=== PATIENT | female | born 1995 | race Caucasian/White ===

== ENCOUNTER 2016-05-06 13:14 | Emergency (ER) | payer OTHER ==
[2016-05-06] MEDS ORDERED: ONDANSETRON 4MG/2ML VIAL (J2405) As Ordered ONE (13:45)
[2016-05-06 13:56] LABS: BASO % 0.1 % (0.0-1.0); EOS # 0.2 K/mm3 (0.0-0.50); EOS % 1.5 % (0.0-3.0); LARGE UNSTAINED CELL % 0.2 % (0.0-4.0); LYMPH # 0.3 K/mm3 (1.5-6.5); MEAN CORPUSCULAR HEMOGLOBIN 32.1 pg (27.0-33.0); MEAN CORPUSCULAR HGB CONC 34.9 g/dl (32.0-36.5); MEAN CORPUSCULAR VOLUME 91.9 fl (80.0-96.0); MONO # 0.3 K/mm3 (0.0-0.8); MONO % 1.9 % (0.0-5.0); NEUTROPHILS # 12.3 K/mm3 (1.8-7.7); NEUTROPHILS % 94.2 % (36.0-66.0); PLATELET COUNT, AUTOMATED 206 k/mm3 (150-450); RED CELL DISTRIBUTION WIDTH 12.2 % (11.5-14.5); WHITE BLOOD COUNT 13.1 K/mm3 (4.0-10.0)
[2016-05-06 14:09] LABS: ANION GAP 10 MEQ/L (8-16); BLOOD UREA NITROGEN 11 MG/DL (7-18); CALCIUM LEVEL 8.4 MG/DL (8.5-10.1); CARBON DIOXIDE LEVEL 26 MEQ/L (21-32); CHLORIDE LEVEL 103 MEQ/L (98-107); CREATININE FOR GFR 0.54 MG/DL (0.55-1.02); GLOMERULAR FILTRATION RATE > 60.0 (>60); GLUCOSE, FASTING 95 MG/DL (70-105); POTASSIUM SERUM 3.8 MEQ/L (3.5-5.1); SODIUM LEVEL 139 MEQ/L (136-145)
--- NOTE | 2016-05-06 15:33 | EDDOCDS ---
Physician Documentation [facility] Name: Rula Amaral Age: 20 yrs Sex: Female : 1995 Arrival Date: 05/06/2016 Time: 13:14 Bed I5 / M5 Private MD: BRAYDON MEDEROS Disposition: 05/06/16 15:25 Discharged to Home/Self Care. Impression: Nausea and vomiting, Diarrhea, unspecified. - Condition is Stable. - Discharge Instructions: Viral Gastroenteritis. - Prescriptions for ZOFRAN ODT 4 mg - dissolve 1 tablet by ORAL route 4 times per day As needed do not chew, do not swallow whole; 10 tablet. - Medication Reconciliation form. - [facility]; When: Tomorrow; Reason: Wound/Symptom Recheck, Recheck today's complaints, Worsening of conditions, Continuance of care. - Problem is new. - Symptoms have improved. - Notes: Please take tylenol as needed for fevers and pain. Historical: - Allergies: no known allergies; - Home Meds: 1. 28 mg iron- 800 mcg Oral tab daily - PMHx: none; - PSHx: Tonsillectomy; [place] Teeth Extraction; - Social history: Smoking status: Patient states former smoker of tobacco. No barriers to communication noted, The patient speaks fluent Estonian. - Family history: Not pertinent. - : The pt / caregiver states he / she is not on anticoagulants. Home medication list is obtained from the patient. - Exposure Risk Screening:: None identified. 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 (167.64 cm); Pain 2/10; 14:21 BP 95 / 53; Pulse 87; Resp 18; Temp 99.5(O); Pulse Ox 100% on R/A; Pain 0/10; elp 15:24 BP 101 / 55; Pulse 89; Resp 18; Temp 102(O); Pulse Ox 100% on R/A; ck1 13:17 Body Mass Index 21.79 (61.23 kg, 167.64 cm) bnb MDM: 13:38 Heart Tones ordered. cc10 13:40 Ondansetron 4 mg IVP once ordered. cc10 13:40 NS 0.9% 1000 ml IV at bolus once ordered. cc10 13:40 IV Saline Lock ordered. cc10 13:41 CBC with Diff Ordered. EDMS 13:41 BMP Ordered. EDMS 14:12 CBC with Diff Reviewed. cc10 14:12 BMP Reviewed. cc10 14:48 Financial registration complete. jls1 14:54 Fluid Challenge ordered. cc10 14:58 [facility] Payment Agreement was scanned into [employer] and attached to record. jls1 15:20 Ambulate Patient to Assess Patient Safety ordered. cc10 15:20 Vital Signs ordered. cc10 Administered Medications: 13:49 Drug: Ondansetron 4 mg [ondansetron HCl 2 mg/mL intravenous solution (2 mL)] Route: ck1 IVP; Site: left antecubital; 13:49 Drug: NS 0.9% 1000 ml [sodium chloride 0.9 % intravenous solution] Route: IV; Rate: ck1 bolus; Site: left antecubital; 15:24 Follow up: IV Status: Completed infusion ck1 Signatures: Dispatcher [employer] Mindi Cleary,RN RN ck1 Shannon Lombardi RN RN rs3 Waqas Pederson, PADiane PADiane cc10 Yas Begum jls1 The chart was reviewed and I authenticate all verbal orders and agree with the evaluation and treatment provided.Attachments: 14:58 [facility] Payment Agreement jls1 MTDD
--- NOTE | 2016-05-06 15:33 | EDDOCDS ---
Nurse's Notes [facility] Name: Rula Amaral Age: 20 yrs Sex: Female : 1995 Arrival Date: 05/06/2016 Time: 13:14 Bed I5 / M5 Private MD: BRAYDON MEDEROS Diagnosis: Nausea and vomiting;Diarrhea, unspecified Presentation: 05/06 13:18 Presenting complaint: Patient states: vomiting/dizziness since this morning. exposure rs3 to sick contacts at work. 15 weeks . Adult Sepsis Screening: The patient does not have new or worsening altered mentation. Patient's respiratory rate is less than 22. Systolic blood pressure is greater than 100. Patient has a qSOFA score of 0- Negative Sepsis Screen. Suicide/Homicide risk assessment- the patient denies having any suicidal and/or homicidal ideations and does not present with any other emotional, behavioral or mental health complaints. 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 Transition of care: patient was not received from another setting of care. 13:18 Acuity: MICHAEL Level 3 rs3 13:18 Method Of Arrival: Walkin/Carried/Asstd rs3 Triage Assessment: 13:21 General: Appears in no apparent distress. Pain: Location: abdomen. Pt Declines HIV rs3 testing. 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 28 mg iron- 800 mcg Oral tab daily - PMHx: none; - PSHx: Tonsillectomy; [place] Teeth Extraction; - Social history: Smoking status: Patient states former smoker of tobacco. No barriers to communication noted, The patient speaks fluent Korean. - Family history: Not pertinent. - : The pt / caregiver states he / she is not on anticoagulants. Home medication list is obtained from the patient. - Exposure Risk Screening:: None identified. Screenin:50 Screening information is obtained from the patient. Fall risk: No risks identified. ck1 Assistance ADL's: requires no assistance with activities of daily living. Abuse/DV Screen: The patient / caregiver reports he/she is: not in a situation that causes fear, pain or injury. Nutritional screening: No deficits noted. Advance Directives: Currently, there is no health care proxy. home support is adequate. Assessment: 13:50 General: Appears in no apparent distress, comfortable, Behavior is appropriate for age, ck1 cooperative. Pain: Location: abdomen. Neurological: Level of Consciousness is awake, alert, obeys commands, Oriented to person, place, time. Respiratory: Respiratory effort is unlabored, Respiratory pattern is regular, symmetrical. GI: Abdomen is non- distended Bowel sounds present X 4 quads. Abd is soft and non tender X 4 quads. Reports nausea, vomiting. : Denies vaginal bleeding. Derm: Skin is intact, is healthy with good turgor, Skin is pink, warm & dry. 14:59 General: Patient lying on stretcher, states she is tolerating PO fluids without ck1 difficulty. Denies vomiting. No acute distress noted, call light in reach. Will continue to monitor patient. 15:31 General: Appears in no apparent distress, comfortable, Behavior is appropriate for age, ck1 cooperative. Pain: Denies pain. Neurological: Level of Consciousness is awake, alert, obeys commands, Oriented to person, place, time. Respiratory: Respiratory effort is unlabored, Respiratory pattern is regular, symmetrical. : Denies vaginal bleeding. Derm: Skin is pink, warm & dry. Vital Signs: 13:17 BP 114 / 67 RA Sitting (auto/lg); Pulse 114; Resp 16; Temp 98.5(O); Pulse Ox 100% on bnb R/A; Weight 61.23 kg; Height 66 in. (167.64 cm); Pain 2/10; 14:21 BP 95 / 53; Pulse 87; Resp 18; Temp 99.5(O); Pulse Ox 100% on R/A; Pain 0/10; elp 15:24 BP 101 / 55; Pulse 89; Resp 18; Temp 102(O); Pulse Ox 100% on R/A; ck1 13:17 Body Mass Index 21.79 (61.23 kg, 167.64 cm) bnb Vitals: 13:17 Log In Time: May 06, 2016 at 13:14. bnb 13:58 Heart Tones 150BPM. mlb1 ED Course: 13:15 Patient visited by Zoe Giles, MARY. bnb 13:15 Patient moved to Waiting bnb 13:16 [facility], [facility] is Private Physician. bnb 13:18 Patient moved to Pre RCE bnb 13:20 Triage Initiated rs3 13:24 Patient moved to Triage 2 ar3 13:38 Waqas Pederson [facility]-C [facility]. cc10 13:38 David Duque MD is Attending Physician. cc10 13:44 Patient moved to I5 / M5 ar3 13:46 Inserted saline lock: 20 gauge in left antecubital area and blood collected. Labs jjr drawn. (by ED staff). Sent per order to lab. 13:51 Patient visited by Mindi Bauman,JANE. ck1 13:51 The patient / caregiver is instructed regarding the plan of care and ED course. ck1 13:55 Patient visited by Waqas Pederson PA-C. cc10 13:55 Patient visited by Waqas Pederson PA-C. cc10 14:22 Patient visited by Armida Mayo PCA. elp 14:54 Patient name changed from Rula\S\Aure\S\Cobey\S\ to Rula\S\Aure\S\Munir. EDMS 14:58 [facility] Payment Agreement was scanned into [email or web address] and attached to record. jls1 14:59 Patient visited by Mindi Bauman,JANE. ck1 15:24 [facility] is Referral Physician. cc10 15:31 No procedures done that require assistance. ck1 15:32 Discontinued lock intact, bleeding controlled, pressure dressing applied, No ck1 redness/swelling at site. Administered Medications: 13:49 Drug: Ondansetron 4 mg [ondansetron HCl 2 mg/mL intravenous solution (2 mL)] Route: ck1 IVP; Site: left antecubital; 13:49 Drug: NS 0.9% 1000 ml [sodium chloride 0.9 % intravenous solution] Route: IV; Rate: ck1 bolus; Site: left antecubital; 15:24 Follow up: IV Status: Completed infusion ck1 Order Results: Lab Order: CBC with Diff; SPEC'M 05/06/16 13:43 Test: WHITE BLOOD COUNT; Value: 13.1; Range: 4.0-10.0; Abnormal: Above high normal; Units: K/mm3; Status: F Test: RED BLOOD COUNT; Value: 4.38; Range: 4.00-5.40; Units: M/mm3; Status: F Test: HEMOGLOBIN; Value: 14.0; Range: 12.0-16.0; Units: g/dl; Status: F Test: HEMATOCRIT; Value: 40.2; Range: 36.0-47.0; Units: %; Status: F Test: MEAN CORPUSCULAR VOLUME; Value: 91.9; Range: 80.0-96.0; Units: fl; Status: F Test: MEAN CORPUSCULAR HEMOGLOBIN; Value: 32.1; Range: 27.0-33.0; Units: pg; Status: F Test: MEAN CORPUSCULAR HGB CONC; Value: 34.9; Range: 32.0-36.5; Units: g/dl; Status: F Test: RED CELL DISTRIBUTION WIDTH; Value: 12.2; Range: 11.5-14.5; Units: %; Status: F Test: PLATELET COUNT, AUTOMATED; Value: 206; Range: 150-450; Units: k/mm3; Status: F Test: NEUTROPHILS %; Value: 94.2; Range: 36.0-66.0; Abnormal: Above high normal; Units: %; Status: F Test: LYMPH %; Value: 2.0; Range: 24.0-44.0; Abnormal: Below low normal; Units: %; Status: F Test: MONO %; Value: 1.9; Range: 0.0-5.0; Units: %; Status: F Test: EOS %; Value: 1.5; Range: 0.0-3.0; Units: %; Status: F Test: BASO %; Value: 0.1; Range: 0.0-1.0; Units: %; Status: F Test: LARGE UNSTAINED CELL %; Value: 0.2; Range: 0.0-4.0; Units: %; Status: F Test: NEUTROPHILS #; Value: 12.3; Range: 1.8-7.7; Abnormal: Above high normal; Units: K/mm3; Status: F Test: LYMPH #; Value: 0.3; Range: 1.5-6.5; Abnormal: Below low normal; Units: K/mm3; Status: F Test: MONO #; Value: 0.3; Range: 0.0-0.8; Units: K/mm3; Status: F Test: EOS #; Value: 0.2; Range: 0.0-0.50; Units: K/mm3; Status: F Test: BASO #; Value: 0.0; Range: 0.0-0.2; Units: K/mm3; Status: F Test: LARGE UNSTAINED CELL #; Value: 0.0; Range: 0.0-0.4; Units: K/mm3; Status: F Lab Order: [facility]; SPEC'M 05/06/16 13:43 Test: GLUCOSE, FASTING; Value: 95; Range: 70-105; Units: MG/DL; Status: F Test: BLOOD UREA NITROGEN; Value: 11; Range: 7-18; Units: MG/DL; Status: F Test: CREATININE FOR GFR; Value: 0.54; Range: 0.55-1.02; Abnormal: Below low normal; Units: MG/DL; Status: F Test: GLOMERULAR FILTRATION RATE; Value: > 60.0; Range: >60; Status: F Test: SODIUM LEVEL; Value: 139; Range: 136-145; Units: MEQ/L; Status: F Test: POTASSIUM SERUM; Value: 3.8; Range: 3.5-5.1; Units: MEQ/L; Status: F Test: CHLORIDE LEVEL; Value: 103; Range: 98-107; Units: MEQ/L; Status: F Test: CARBON DIOXIDE LEVEL; Value: 26; Range: 21-32; Units: MEQ/L; Status: F Test: ANION GAP; Value: 10; Range: 8-16; Units: MEQ/L; Status: F Test: CALCIUM LEVEL; Value: 8.4; Range: 8.5-10.1; Abnormal: Below low normal; Units: MG/DL; Status: F Test Note: ; Units are mL/min/1.73 m2 Chronic Kidney Disease Staging per NKF: Stage I & II GFR >=60 Normal to Mildly Decreased Stage III GFR 30-59 Moderately Decreased Stage IV GFR 15-29 Severely Decreased Stage V GFR <15 Very Little GFR Left ESRD GFR <15 on BOREMATIC OPERATOR Outcome: 15:25 Discharge ordered by Provider. cc10 15:31 Discharge Assessment: Patient awake, alert and oriented x 3. No cognitive and/or ck1 functional deficits noted. Patient verbalized understanding of disposition instructions. patient administered narcotics - no. The following High Risk Discharge criteria are identified: None. Discharged to home ambulatory, with friend. Condition: stable. Discharge instructions given to patient, Instructed on discharge instructions, follow up and referral plans. medication usage, Demonstrated understanding of instructions, medications, Pt was receptive of discharge instructions/ teaching. Prescriptions given X 1. Property :Personal belongings accompany Pt. 15:31 No special radiology studies were completed. ck1 15:32 Patient left the ED. ck1 Signatures: Dispatcher [employer] EDMS Сергей Brito RN RN mlb1 Mindi BaumanRN RN ck1 Viviane Martinez RN RN Shannon LemonRN RN rs3 Vilma Pina, DIRECTOR OF GROUP COUNSELING PROGRAM DIRECTOR OF GROUP COUNSELING PROGRAM ar3 Armida Mayo, DIRECTOR OF GROUP COUNSELING PROGRAM DIRECTOR OF GROUP COUNSELING PROGRAM elp Waqas Pederson PA-C PA-C cc10 Yas Begum jls1 Zoe Giles, DIRECTOR OF GROUP COUNSELING PROGRAM DIRECTOR OF GROUP COUNSELING PROGRAM bnb MTDD
--- NOTE | 2016-05-08 16:33 | EDDOCDS ---
Physician Documentation [facility] Name: Rula Amaral Age: 20 yrs Sex: Female : 1995 Arrival Date: 05/06/2016 Time: 13:14 Bed I5 / M5 Private MD: BRAYDON MEDEROS Disposition: 05/06/16 15:25 Discharged to Home/Self Care. Impression: Nausea and vomiting, Diarrhea, unspecified. - Condition is Stable. - Discharge Instructions: Viral Gastroenteritis. - Prescriptions for ZOFRAN ODT 4 mg - dissolve 1 tablet by ORAL route 4 times per day As needed do not chew, do not swallow whole; 10 tablet. - Medication Reconciliation form. - [facility]: Tomorrow; Reason: Wound/Symptom Recheck, Recheck today's complaints, Worsening of conditions, Continuance of care. - Problem is new. - Symptoms have improved. - Notes: Please take tylenol as needed for fevers and pain. Historical: - Allergies: no known allergies; - Home Meds: 1. 28 mg iron- 800 mcg Oral tab daily - PMHx: none; - PSHx: Tonsillectomy; [place] Teeth Extraction; - Social history: Smoking status: Patient states former smoker of tobacco. No barriers to communication noted, The patient speaks fluent Faroese. - Family history: Not pertinent. - : The pt / caregiver states he / she is not on anticoagulants. Home medication list is obtained from the patient. - Exposure Risk Screening:: None identified. 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 (167.64 cm); Pain 2/10; 14:21 BP 95 / 53; Pulse 87; Resp 18; Temp 99.5(O); Pulse Ox 100% on R/A; Pain 0/10; elp 15:24 BP 101 / 55; Pulse 89; Resp 18; Temp 102(O); Pulse Ox 100% on R/A; ck1 13:17 Body Mass Index 21.79 (61.23 kg, 167.64 cm) bnb MDM: 13:38 Heart Tones ordered. cc10 13:40 Ondansetron 4 mg IVP once ordered. cc10 13:40 NS 0.9% 1000 ml IV at bolus once ordered. cc10 13:40 IV Saline Lock ordered. cc10 13:41 CBC with Diff Ordered. EDMS 13:41 BMP Ordered. EDMS 14:12 CBC with Diff Reviewed. cc10 14:12 BMP Reviewed. cc10 14:48 Financial registration complete. jls1 14:54 Fluid Challenge ordered. cc10 14:58 [facility] Payment Agreement was scanned into [employer] and attached to record. jls1 15:20 Ambulate Patient to Assess Patient Safety ordered. cc10 15:20 Vital Signs ordered. cc10 19:16 T-Sheet-- Draft Copy was scanned into [employer] and attached to record. klr Administered Medications: 13:49 Drug: Ondansetron 4 mg [ondansetron HCl 2 mg/mL intravenous solution (2 mL)] Route: ck1 IVP; Site: left antecubital; 13:49 Drug: NS 0.9% 1000 ml [sodium chloride 0.9 % intravenous solution] Route: IV; Rate: ck1 bolus; Site: left antecubital; 15:24 Follow up: IV Status: Completed infusion ck1 Signatures: Dispatcher [employer] EDMindi Shrestha RN RN ck1 Shannon Lombardi RN RN rs3 Waqas Pederson PA-C PADiane cc10 Yas Begum jls1 Susannah Blackburn klr The chart was reviewed and I authenticate all verbal orders and agree with the evaluation and treatment provided.Attachments: 14:58 [facility] Payment Agreement jls1 19:16 T-Sheet-- Draft Copy klr Chart Complete MTDD
--- NOTE | 2016-05-08 16:33 | EDDOCDS ---
Nurse's Notes [facility] Name: Rula Amaral Age: 20 yrs Sex: Female : 1995 Arrival Date: 05/06/2016 Time: 13:14 Bed I5 / M5 Private MD: BRAYDON MEDEROS Diagnosis: Nausea and vomiting;Diarrhea, unspecified Presentation: 05/06 13:18 Presenting complaint: Patient states: vomiting/dizziness since this morning. exposure rs3 to sick contacts at work. 15 weeks . Adult Sepsis Screening: The patient does not have new or worsening altered mentation. Patient's respiratory rate is less than 22. Systolic blood pressure is greater than 100. Patient has a qSOFA score of 0- Negative Sepsis Screen. Suicide/Homicide risk assessment- the patient denies having any suicidal and/or homicidal ideations and does not present with any other emotional, behavioral or mental health complaints. 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 Transition of care: patient was not received from another setting of care. 13:18 Acuity: MICHAEL Level 3 rs3 13:18 Method Of Arrival: Walkin/Carried/Asstd rs3 Triage Assessment: 13:21 General: Appears in no apparent distress. Pain: Location: abdomen. Pt Declines HIV rs3 testing. 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 28 mg iron- 800 mcg Oral tab daily - PMHx: none; - PSHx: Tonsillectomy; [place] Teeth Extraction; - Social history: Smoking status: Patient states former smoker of tobacco. No barriers to communication noted, The patient speaks fluent Portuguese. - Family history: Not pertinent. - : The pt / caregiver states he / she is not on anticoagulants. Home medication list is obtained from the patient. - Exposure Risk Screening:: None identified. Screenin:50 Screening information is obtained from the patient. Fall risk: No risks identified. ck1 Assistance ADL's: requires no assistance with activities of daily living. Abuse/DV Screen: The patient / caregiver reports he/she is: not in a situation that causes fear, pain or injury. Nutritional screening: No deficits noted. Advance Directives: Currently, there is no health care proxy. home support is adequate. Assessment: 13:50 General: Appears in no apparent distress, comfortable, Behavior is appropriate for age, ck1 cooperative. Pain: Location: abdomen. Neurological: Level of Consciousness is awake, alert, obeys commands, Oriented to person, place, time. Respiratory: Respiratory effort is unlabored, Respiratory pattern is regular, symmetrical. GI: Abdomen is non- distended Bowel sounds present X 4 quads. Abd is soft and non tender X 4 quads. Reports nausea, vomiting. : Denies vaginal bleeding. Derm: Skin is intact, is healthy with good turgor, Skin is pink, warm & dry. 14:59 General: Patient lying on stretcher, states she is tolerating PO fluids without ck1 difficulty. Denies vomiting. No acute distress noted, call light in reach. Will continue to monitor patient. 15:31 General: Appears in no apparent distress, comfortable, Behavior is appropriate for age, ck1 cooperative. Pain: Denies pain. Neurological: Level of Consciousness is awake, alert, obeys commands, Oriented to person, place, time. Respiratory: Respiratory effort is unlabored, Respiratory pattern is regular, symmetrical. : Denies vaginal bleeding. Derm: Skin is pink, warm & dry. Vital Signs: 13:17 BP 114 / 67 RA Sitting (auto/lg); Pulse 114; Resp 16; Temp 98.5(O); Pulse Ox 100% on bnb R/A; Weight 61.23 kg; Height 66 in. (167.64 cm); Pain 2/10; 14:21 BP 95 / 53; Pulse 87; Resp 18; Temp 99.5(O); Pulse Ox 100% on R/A; Pain 0/10; elp 15:24 BP 101 / 55; Pulse 89; Resp 18; Temp 102(O); Pulse Ox 100% on R/A; ck1 13:17 Body Mass Index 21.79 (61.23 kg, 167.64 cm) bnb Vitals: 13:17 Log In Time: May 06, 2016 at 13:14. bnb 13:58 Heart Tones 150BPM. mlb1 ED Course: 13:15 Patient visited by Zoe Giles, MARY. bnb 13:15 Patient moved to Waiting bnb 13:16 [facility], [facility] is Private Physician. bnb 13:18 Patient moved to Pre RCE bnb 13:20 Triage Initiated rs3 13:24 Patient moved to Triage 2 ar3 13:38 Waqas Pederson PA-C is PHCP. cc10 13:38 David Duque MD is Attending Physician. cc10 13:44 Patient moved to I5 / M5 ar3 13:46 Inserted saline lock: 20 gauge in left antecubital area and blood collected. Labs jjr drawn. (by ED staff). Sent per order to lab. 13:51 Patient visited by Mindi Bauman,JANE. ck1 13:51 The patient / caregiver is instructed regarding the plan of care and ED course. ck1 13:55 Patient visited by Waqas Pederson PA-C. cc10 13:55 Patient visited by Waqas Pederson PA-C. cc10 14:22 Patient visited by Armida Mayo PCA. elp 14:54 Patient name changed from Rual\S\Aure\S\Cobey\S\ to Rula\S\Aure\S\Munir. EDMS 14:58 [facility] Payment Agreement was scanned into [employer] and attached to record. jls1 14:59 Patient visited by Mindi Bauman,JANE. ck1 15:24 [facility] is Referral Physician. cc10 15:31 No procedures done that require assistance. ck1 15:32 Discontinued lock intact, bleeding controlled, pressure dressing applied, No ck1 redness/swelling at site. 19:16 T-Sheet-- Draft Copy was scanned into [employer] and attached to record. klr Administered Medications: 13:49 Drug: Ondansetron 4 mg [ondansetron HCl 2 mg/mL intravenous solution (2 mL)] Route: ck1 IVP; Site: left antecubital; 13:49 Drug: NS 0.9% 1000 ml [sodium chloride 0.9 % intravenous solution] Route: IV; Rate: ck1 bolus; Site: left antecubital; 15:24 Follow up: IV Status: Completed infusion ck1 Order Results: Lab Order: CBC with Diff; SPEC'M 05/06/16 13:43 Test: WHITE BLOOD COUNT; Value: 13.1; Range: 4.0-10.0; Abnormal: Above high normal; Units: K/mm3; Status: F Test: RED BLOOD COUNT; Value: 4.38; Range: 4.00-5.40; Units: M/mm3; Status: F Test: HEMOGLOBIN; Value: 14.0; Range: 12.0-16.0; Units: g/dl; Status: F Test: HEMATOCRIT; Value: 40.2; Range: 36.0-47.0; Units: %; Status: F Test: MEAN CORPUSCULAR VOLUME; Value: 91.9; Range: 80.0-96.0; Units: fl; Status: F Test: MEAN CORPUSCULAR HEMOGLOBIN; Value: 32.1; Range: 27.0-33.0; Units: pg; Status: F Test: MEAN CORPUSCULAR HGB CONC; Value: 34.9; Range: 32.0-36.5; Units: g/dl; Status: F Test: RED CELL DISTRIBUTION WIDTH; Value: 12.2; Range: 11.5-14.5; Units: %; Status: F Test: PLATELET COUNT, AUTOMATED; Value: 206; Range: 150-450; Units: k/mm3; Status: F Test: NEUTROPHILS %; Value: 94.2; Range: 36.0-66.0; Abnormal: Above high normal; Units: %; Status: F Test: LYMPH %; Value: 2.0; Range: 24.0-44.0; Abnormal: Below low normal; Units: %; Status: F Test: MONO %; Value: 1.9; Range: 0.0-5.0; Units: %; Status: F Test: EOS %; Value: 1.5; Range: 0.0-3.0; Units: %; Status: F Test: BASO %; Value: 0.1; Range: 0.0-1.0; Units: %; Status: F Test: LARGE UNSTAINED CELL %; Value: 0.2; Range: 0.0-4.0; Units: %; Status: F Test: NEUTROPHILS #; Value: 12.3; Range: 1.8-7.7; Abnormal: Above high normal; Units: K/mm3; Status: F Test: LYMPH #; Value: 0.3; Range: 1.5-6.5; Abnormal: Below low normal; Units: K/mm3; Status: F Test: MONO #; Value: 0.3; Range: 0.0-0.8; Units: K/mm3; Status: F Test: EOS #; Value: 0.2; Range: 0.0-0.50; Units: K/mm3; Status: F Test: BASO #; Value: 0.0; Range: 0.0-0.2; Units: K/mm3; Status: F Test: LARGE UNSTAINED CELL #; Value: 0.0; Range: 0.0-0.4; Units: K/mm3; Status: F Lab Order: [facility]; SPEC'M 05/06/16 13:43 Test: GLUCOSE, FASTING; Value: 95; Range: 70-105; Units: MG/DL; Status: F Test: BLOOD UREA NITROGEN; Value: 11; Range: 7-18; Units: MG/DL; Status: F Test: CREATININE FOR GFR; Value: 0.54; Range: 0.55-1.02; Abnormal: Below low normal; Units: MG/DL; Status: F Test: GLOMERULAR FILTRATION RATE; Value: > 60.0; Range: >60; Status: F Test: SODIUM LEVEL; Value: 139; Range: 136-145; Units: MEQ/L; Status: F Test: POTASSIUM SERUM; Value: 3.8; Range: 3.5-5.1; Units: MEQ/L; Status: F Test: CHLORIDE LEVEL; Value: 103; Range: 98-107; Units: MEQ/L; Status: F Test: CARBON DIOXIDE LEVEL; Value: 26; Range: 21-32; Units: MEQ/L; Status: F Test: ANION GAP; Value: 10; Range: 8-16; Units: MEQ/L; Status: F Test: CALCIUM LEVEL; Value: 8.4; Range: 8.5-10.1; Abnormal: Below low normal; Units: MG/DL; Status: F Test Note: ; Units are mL/min/1.73 m2 Chronic Kidney Disease Staging per NKF: Stage I & II GFR >=60 Normal to Mildly Decreased Stage III GFR 30-59 Moderately Decreased Stage IV GFR 15-29 Severely Decreased Stage V GFR <15 Very Little GFR Left ESRD GFR <15 on SUPERVISOR [employer] SILVERING Outcome: 15:25 Discharge ordered by Provider. cc10 15:31 Discharge Assessment: Patient awake, alert and oriented x 3. No cognitive and/or ck1 functional deficits noted. Patient verbalized understanding of disposition instructions. patient administered narcotics - no. The following High Risk Discharge criteria are identified: None. Discharged to home ambulatory, with friend. Condition: stable. Discharge instructions given to patient, Instructed on discharge instructions, follow up and referral plans. medication usage, Demonstrated understanding of instructions, medications, Pt was receptive of discharge instructions/ teaching. Prescriptions given X 1. Property :Personal belongings accompany Pt. 15:31 No special radiology studies were completed. ck1 15:32 Patient left the ED. ck1 Signatures: Dispatcher [employer] EDMS Сергей Brito RN RN mlb1 Mindi BaumanRN RN ck1 Viviane Martinez RN RN jacob Lombardi,ShannonRN RN rs3 Vilma Pina, INSPECTOR FINAL ASSEMBLY MECHANICAL INSPECTOR FINAL ASSEMBLY MECHANICAL ar3 Armida Mayo, INSPECTOR FINAL ASSEMBLY MECHANICAL INSPECTOR FINAL ASSEMBLY MECHANICAL elp Waqas Pederson, PA-C PA-C cc10 Yas Begum Kathie klr Becker, Brittney, INSPECTOR FINAL ASSEMBLY MECHANICAL INSPECTOR FINAL ASSEMBLY MECHANICAL bnb Chart Complete MTDJuli
--- NOTE | 2016-05-08 16:33 | EDDOCDS ---
Physician Documentation [facility] Name: Rula Amaral Age: 20 yrs Sex: Female : 1995 Arrival Date: 05/06/2016 Time: 13:14 Bed I5 / M5 Private MD: BRAYDON MEDEROS Disposition: 05/06/16 15:25 Discharged to Home/Self Care. Impression: Nausea and vomiting, Diarrhea, unspecified. - Condition is Stable. - Discharge Instructions: Viral Gastroenteritis. - Prescriptions for ZOFRAN ODT 4 mg - dissolve 1 tablet by ORAL route 4 times per day As needed do not chew, do not swallow whole; 10 tablet. - Medication Reconciliation form. - [facility] When: Tomorrow; Reason: Wound/Symptom Recheck, Recheck today's complaints, Worsening of conditions, Continuance of care. - Problem is new. - Symptoms have improved. - Notes: Please take tylenol as needed for fevers and pain. Historical: - Allergies: no known allergies; - Home Meds: 1. 28 mg iron- 800 mcg Oral tab daily - PMHx: none; - PSHx: Tonsillectomy; [place] Teeth Extraction; - Social history: Smoking status: Patient states former smoker of tobacco. No barriers to communication noted, The patient speaks fluent Mauritian. - Family history: Not pertinent. - : The pt / caregiver states he / she is not on anticoagulants. Home medication list is obtained from the patient. - Exposure Risk Screening:: None identified. 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 (167.64 cm); Pain 2/10; 14:21 BP 95 / 53; Pulse 87; Resp 18; Temp 99.5(O); Pulse Ox 100% on R/A; Pain 0/10; elp 15:24 BP 101 / 55; Pulse 89; Resp 18; Temp 102(O); Pulse Ox 100% on R/A; ck1 13:17 Body Mass Index 21.79 (61.23 kg, 167.64 cm) bnb MDM: 13:38 Heart Tones ordered. cc10 13:40 Ondansetron 4 mg IVP once ordered. cc10 13:40 NS 0.9% 1000 ml IV at bolus once ordered. cc10 13:40 IV Saline Lock ordered. cc10 13:41 CBC with Diff Ordered. EDMS 13:41 BMP Ordered. EDMS 14:12 CBC with Diff Reviewed. cc10 14:12 BMP Reviewed. cc10 14:48 Financial registration complete. jls1 14:54 Fluid Challenge ordered. cc10 14:58 [facility] Payment Agreement was scanned into [employer] and attached to record. jls1 15:20 Ambulate Patient to Assess Patient Safety ordered. cc10 15:20 Vital Signs ordered. cc10 19:16 T-Sheet-- Draft Copy was scanned into [employer] and attached to record. klr Administered Medications: 13:49 Drug: Ondansetron 4 mg [ondansetron HCl 2 mg/mL intravenous solution (2 mL)] Route: ck1 IVP; Site: left antecubital; 13:49 Drug: NS 0.9% 1000 ml [sodium chloride 0.9 % intravenous solution] Route: IV; Rate: ck1 bolus; Site: left antecubital; 15:24 Follow up: IV Status: Completed infusion ck1 Signatures: Dispatcher [employer] EDMindi Shrestha RN RN ck1 Shannon Lombardi RN RN rs3 Waqas Pederson PA-C PADiane cc10 Yas Begum jls1 Susannah Blackburn klr The chart was reviewed and I authenticate all verbal orders and agree with the evaluation and treatment provided.Attachments: 14:58 [facility] Payment Agreement jls1 19:16 T-Sheet-- Draft Copy klr Chart Complete MTDD
== END 2016-05-06 15:32 | disposition home or self-care (01) ==
LOC: M ED 13:14
DX: O21.9 Vomiting of pregnancy, unspecified (principal); R19.7 Diarrhea, unspecified; Z79.899 Other long term (current) drug therapy; Z87.891 Personal history of nicotine dependence; Z3A.15 15 weeks gestation of pregnancy
CPT/HCPCS: 36415; 80048; 85025; 96361; 96374; 99284; J2405